=== PATIENT | male | born 1945 | race Hispanic/Latino ===

== ENCOUNTER 2017-07-24 15:29 | Inpatient (IN) | payer OTHER ==
[~2017-07-24] VITALS: Ht 162.6 cm; Wt 91.5 kg
[~2017-07-24 15:29] MED LIST: ADVIL200 MG PO; ATENOLOL100 MG PO; AUGMENTIN875 MG PO; BACTRIM,SEPT1 TABLET PO; CENTANY1 EACH TP; CLEOCIN300 MG PO; Cipro PO; ELIQUIS5 MG PO; FERROUS SULFAT325 MG PO; GLIMEPIRIDE4 MG PO; GLIPIZIDE10 MG PO; GLUCOPHAGE1000 MG PO; GLUCOTROL10 MG PO; LASIX20 MG PO; LISINOPRIL40 MG PO; LYRICA300 MG PO; METFORMIN HCL1000 MG PO; OXYCONTIN10 MG PO; Percocet 5/325,Endoc PO; TAMSULOSIN HCL0.4 MG PO; TENORMIN100 MG PO; [UNRECOGNIZED DRUG - OTHER] TP; [UNRECOGNIZED DRUG - REMARK]
[2017-07-24 16:47] LABS: HEMATOCRIT 31.2 % (38.0-50.0); MCH 28.9 PG (29.0-34.0); MCHC 33.7 G/DL (30.0-36.0); MEAN PLAT.VOLUME 9.9 uM^3 (9.0-12.4); PLATELET COUNT 74 K/uL (156-360); RBC DIS.WIDTH-SD 47.5 % (39-53); RED BLOOD COUNT 3.63 M/uL (4.00-5.50); WHITE BLOOD COUNT 7.6 K/uL (4.1-10.2)
[2017-07-24 16:59] LABS: CHLORIDE 104 mEq/L (99-109); SODIUM 128 mEq/L (136-147)
[2017-07-24 17:01] LABS: GLUCOSE 190 mg/dL (70-99)
[2017-07-24 17:02] LABS: ANION GAP 7 MEQ/L (2-14)
[2017-07-24 17:04] LABS: GFR ESTIMATE (CALCULATED) 30 mL/min/
[2017-07-24 17:05] LABS: UREA NITROGEN (BUN) 36 mg/dL (9-23)
[2017-07-24 17:13] LABS: TROP-I INTERPRETATION NEGATIVE; TROPONIN-I < 0.01 ng/mL (0.0-0.30)
[2017-07-24 17:18] LABS: POTASSIUM 6.9 mEq/L (3.7-5.4)
[2017-07-24] MEDS ORDERED: GLUCOPHAGE500 MG PO (19:01)
[2017-07-24] MEDS ORDERED: NORVASC5 MG PO (19:01)
[2017-07-24] MEDS ORDERED: AMARYL2 MG PO (19:01)
[2017-07-24] MEDS ORDERED: LEVEMIR FL100 UNIT/1 SC (19:02)
[2017-07-24] MEDS ORDERED: TENORMIN50 MG PO (19:02)
[2017-07-24] MEDS ORDERED: ZESTRIL40 MG PO (19:02)
[2017-07-24] MEDS ORDERED: CLOTRIMAZOLE-BE15 GM TP (19:03)
[2017-07-24] MEDS ORDERED: ADVIL200 MG PO (19:03)
[2017-07-24 20:54] VITALS: BP 168/72
[2017-07-24 21:09] LABS: Estimated Average Glucose 151 mg/dL (70-123)
[2017-07-24 22:29] LABS: HEMOGLOBIN A1c (GLYCOHEMOGLOB) 6.9 % HGB (Below 5.7)
[2017-07-24 23:43] VITALS: BP 144/62
[2017-07-25 03:50] VITALS: BP 125/58
[2017-07-25 06:08] LABS: MCH 28.3 PG (29.0-34.0); MCHC 32.4 G/DL (30.0-36.0); MCV 87.3 FL (86-99); PLATELET COUNT 61 K/uL (156-360); RBC DIS.WIDTH-CV 15.1 % (11.8-14.6); RBC DIS.WIDTH-SD 47.9 % (39-53); RED BLOOD COUNT 3.32 M/uL (4.00-5.50); WHITE BLOOD COUNT 5.8 K/uL (4.1-10.2)
[2017-07-25 06:58] LABS: ANION GAP 12 MEQ/L (2-14); CHLORIDE 103 MEQ/L (99-109); GFR ESTIMATE (CALCULATED) 30 mL/min/; GLUCOSE 230 mg/dL (70-99); SAMPLE HEMOLYSIS CHECK 0; SAMPLE ICTERIC CHECK 0; SAMPLE LIPEMIA CHECK 0; SODIUM 131 MEQ/L (136-147); UREA NITROGEN (BUN) 42 mg/dL (9-23)
[2017-07-25 07:02] LABS: POTASSIUM 6.4 MEQ/L (3.7-5.4)
[2017-07-25 07:37] VITALS: BP 138/65
[2017-07-25 08:22] LABS: POINT-OF-CARE METER ID UU14188625
[2017-07-25 11:06] LABS: IRON 68 MCG/DL (35-150)
[2017-07-25 13:28] LABS: ANION GAP 10 MEQ/L (2-14); CHLORIDE 103 MEQ/L (99-109); POTASSIUM 5.2 MEQ/L (3.7-5.4); SAMPLE HEMOLYSIS CHECK 0; SAMPLE ICTERIC CHECK 0; SAMPLE LIPEMIA CHECK 0; SODIUM 131 MEQ/L (136-147)
[2017-07-25 13:34] LABS: GFR ESTIMATE (CALCULATED) 33 mL/min/; GLUCOSE 299 mg/dL (70-99); UREA NITROGEN (BUN) 45 mg/dL (9-23)
[2017-07-25 14:37] LABS: POINT-OF-CARE METER ID UU14188625
[2017-07-25 16:44] VITALS: BP 150/67
[2017-07-25 19:49] VITALS: BP 146/69
[2017-07-25 23:32] VITALS: BP 155/65
[2017-07-26 03:42] VITALS: BP 146/62
[2017-07-26 06:46] LABS: HEMATOCRIT 26.4 % (38.0-50.0); MCH 28.7 PG (29.0-34.0); MCV 87.1 FL (86-99); PLATELET COUNT 52 K/uL (156-360); RBC DIS.WIDTH-SD 47.8 % (39-53); RED BLOOD COUNT 3.03 M/uL (4.00-5.50)
[2017-07-26 07:25] LABS: ANION GAP 13 MEQ/L (2-14); CHLORIDE 105 MEQ/L (99-109); GFR ESTIMATE (CALCULATED) 33 mL/min/; GLUCOSE 270 mg/dL (70-99); POTASSIUM 4.8 MEQ/L (3.7-5.4); SAMPLE HEMOLYSIS CHECK 0; SAMPLE ICTERIC CHECK 0; SAMPLE LIPEMIA CHECK 0; SODIUM 133 MEQ/L (136-147); UREA NITROGEN (BUN) 62 mg/dL (9-23)
[2017-07-26 08:22] VITALS: BP 132/61
[2017-07-26 08:39] LABS: POINT-OF-CARE METER ID UU14188625
[2017-07-26 12:44] LABS: POINT-OF-CARE METER ID UU14188625
[2017-07-26 12:50] VITALS: BP 138/63
[2017-07-26 16:18] VITALS: BP 136/61
[2017-07-26 20:12] VITALS: BP 168/68
[2017-07-26 23:28] VITALS: BP 135/60
[2017-07-27 03:32] VITALS: BP 158/70
[2017-07-27 06:12] LABS: HEMATOCRIT 27.4 % (38.0-50.0); MCH 28.8 PG (29.0-34.0); MCHC 32.8 G/DL (30.0-36.0); MCV 87.5 FL (86-99); MEAN PLAT.VOLUME 11.4 uM^3 (9.0-12.4); PLATELET COUNT 52 K/uL (156-360); RBC DIS.WIDTH-CV 15.4 % (11.8-14.6); RBC DIS.WIDTH-SD 48.9 % (39-53); RED BLOOD COUNT 3.13 M/uL (4.00-5.50); WHITE BLOOD COUNT 6.7 K/uL (4.1-10.2)
[2017-07-27 06:41] LABS: ANION GAP 9 MEQ/L (2-14); CHLORIDE 104 MEQ/L (99-109); GFR ESTIMATE (CALCULATED) 35 mL/min/; GLUCOSE 295 mg/dL (70-99); POTASSIUM 4.6 MEQ/L (3.7-5.4); SAMPLE HEMOLYSIS CHECK 0; SAMPLE ICTERIC CHECK 0; SAMPLE LIPEMIA CHECK 0; SODIUM 133 MEQ/L (136-147); UREA NITROGEN (BUN) 68 mg/dL (9-23)
[2017-07-27 08:20] VITALS: BP 126/56
[2017-07-27 08:42] LABS: POINT-OF-CARE METER ID UU14188625
[2017-07-27 13:09] LABS: POINT-OF-CARE METER ID UU14174225
[2017-07-27 15:59] VITALS: BP 150/64
[2017-07-27 18:36] LABS: POINT-OF-CARE METER ID UU14188625
[2017-07-27 19:49] VITALS: BP 175/75
[2017-07-28] VITALS: BP 126/58
[2017-07-28 03:52] VITALS: BP 155/67
[2017-07-28 07:02] LABS: ANION GAP 7 MEQ/L (2-14); CHLORIDE 107 MEQ/L (99-109); GFR ESTIMATE (CALCULATED) 40 mL/min/; GLUCOSE 229 mg/dL (70-99); POTASSIUM 4.4 MEQ/L (3.7-5.4); SAMPLE HEMOLYSIS CHECK 0; SAMPLE ICTERIC CHECK 0; SAMPLE LIPEMIA CHECK 0; SODIUM 138 MEQ/L (136-147); UREA NITROGEN (BUN) 66 mg/dL (9-23); URIC ACID 10.9 mg/dL (3.1-9.2)
[2017-07-28 07:53] LABS: POINT-OF-CARE METER ID UU14174225
[2017-07-28 08:34] VITALS: BP 139/93
[2017-07-28 11:28] VITALS: BP 145/63
[2017-07-28 12:19] LABS: POINT-OF-CARE METER ID UU14174225
[2017-07-28 17:27] LABS: POINT-OF-CARE METER ID UU14174225
[2017-07-28 17:46] VITALS: BP 139/78
[2017-07-28 21:02] LABS: POINT-OF-CARE METER ID UU14174225
[2017-07-29 00:14] VITALS: BP 117/59
[2017-07-29 06:35] LABS: EOSINOPHIL (%) 0 % (0-5); INSTRUMENT ABS NEUTROPHIL CT 3.1 K/uL; LYMPHOCYTE COUNT 0.6 K/uL (1.0-2.8); MCH 29.6 PG (29.0-34.0); MCHC 34.1 G/DL (30.0-36.0); MCV 86.8 FL (86-99); MONOCYTE (%) 9.5 % (3-12); MONOCYTE COUNT 0.4 K/uL (0-0.8); NEUTROPHIL (%) 74.9 % (45-76); NEUTROPHIL COUNT 3.1 K/uL (1.8-6.4); RBC DIS.WIDTH-CV 15.4 % (11.8-14.6); RED BLOOD COUNT 3.34 M/uL (4.00-5.50); WHITE BLOOD COUNT 4.1 K/uL (4.1-10.2)
[2017-07-29 07:01] LABS: ANION GAP 8 MEQ/L (2-14); CHLORIDE 109 MEQ/L (99-109); GFR ESTIMATE (CALCULATED) 49 mL/min/; GLUCOSE 144 mg/dL (70-99); MEAN PLAT.VOLUME 10.9 uM^3 (9.0-12.4); PLAT.SUFFICIENCY DECREASED; PLATELET COUNT 44 K/uL (156-360); SAMPLE HEMOLYSIS CHECK 0; SAMPLE ICTERIC CHECK 0; SAMPLE LIPEMIA CHECK 0; SODIUM 144 MEQ/L (136-147); UREA NITROGEN (BUN) 53 mg/dL (9-23)
[2017-07-29 07:02] LABS: ANION GAP 8 MEQ/L (2-14); CHLORIDE 109 MEQ/L (99-109); GFR ESTIMATE (CALCULATED) 45 mL/min/; GLUCOSE 145 mg/dL (70-99); SAMPLE HEMOLYSIS CHECK 0; SAMPLE ICTERIC CHECK 0; SAMPLE LIPEMIA CHECK 0; SODIUM 144 MEQ/L (136-147); UREA NITROGEN (BUN) 54 mg/dL (9-23)
[2017-07-29 07:48] VITALS: BP 147/70
[2017-07-29 12:03] LABS: POINT-OF-CARE METER ID UU14188625
[2017-07-29 15:13] VITALS: BP 123/69
[2017-07-29 20:45] VITALS: BP 127/70
[2017-07-29 23:34] VITALS: BP 116/58
[2017-07-30 06:04] LABS: HEMATOCRIT 31.6 % (38.0-50.0); MCH 29.1 PG (29.0-34.0); MCHC 33.9 G/DL (30.0-36.0); MCV 85.9 FL (86-99); RBC DIS.WIDTH-CV 15.3 % (11.8-14.6); RED BLOOD COUNT 3.68 M/uL (4.00-5.50)
[2017-07-30 06:29] LABS: ANION GAP 8 MEQ/L (2-14); CHLORIDE 105 MEQ/L (99-109); GFR ESTIMATE (CALCULATED) 42 mL/min/; POTASSIUM 3.7 MEQ/L (3.7-5.4); SAMPLE HEMOLYSIS CHECK 0; SAMPLE ICTERIC CHECK 0; SAMPLE LIPEMIA CHECK 0; SODIUM 142 MEQ/L (136-147); UREA NITROGEN (BUN) 56 mg/dL (9-23)
[2017-07-30 06:30] LABS: GLUCOSE 86 mg/dL (70-99)
[2017-07-30 07:10] LABS: HEMATOLOGY COMMENT 1 SMEAR COMPATIBLE; IMM.PLATELET FRACTION 4.1 (1-7); MEAN PLAT.VOLUME 10.6 uM^3 (9.0-12.4); PLATELET COUNT 48 K/uL (156-360)
[2017-07-30 08:04] VITALS: BP 121/63
[2017-07-30 08:22] LABS: POINT-OF-CARE METER ID UU13113717
[2017-07-30 09:34] LABS: POINT-OF-CARE METER ID UU13113717
[2017-07-30 11:51] LABS: POINT-OF-CARE METER ID UU13113717
[2017-07-30 15:45] VITALS: BP 127/80
[2017-07-30 18:36] LABS: MAGNESIUM 2.2 mg/dl (1.3-2.7)
[2017-07-30 18:59] LABS: POTASSIUM 4.6 MEQ/L (3.7-5.4)
[2017-07-30 19:42] VITALS: BP 131/60
[2017-07-30 21:20] LABS: POINT-OF-CARE METER ID UU14174225
[2017-07-31 00:41] VITALS: BP 104/50
[2017-07-31 04:02] VITALS: BP 106/54
[2017-07-31 06:53] LABS: ANION GAP 11 MEQ/L (2-14); CHLORIDE 105 MEQ/L (99-109); GFR ESTIMATE (CALCULATED) 37 mL/min/; GLUCOSE 89 mg/dL (70-99); POTASSIUM 3.8 MEQ/L (3.7-5.4); SAMPLE HEMOLYSIS CHECK 0; SAMPLE ICTERIC CHECK 0; SAMPLE LIPEMIA CHECK 0; SODIUM 144 MEQ/L (136-147); UREA NITROGEN (BUN) 61 mg/dL (9-23)
[2017-07-31 07:52] LABS: POINT-OF-CARE METER ID UU13113717
[2017-07-31 08:38] VITALS: BP 122/60
[2017-07-31 11:55] LABS: POINT-OF-CARE METER ID UU13113717
[2017-07-31 12:35] VITALS: BP 134/63
[2017-07-31 16:24] VITALS: BP 141/62
[2017-07-31 16:51] LABS: POINT-OF-CARE METER ID UU13113717
[2017-07-31 20:05] VITALS: BP 124/58
[2017-07-31 21:09] LABS: POINT-OF-CARE METER ID UU13113717
[2017-08-01 00:58] VITALS: BP 131/60
[2017-08-01 04:58] VITALS: BP 101/54
[2017-08-01 07:00] LABS: HEMATOCRIT 32.4 % (38.0-50.0); MCH 29.9 PG (29.0-34.0); RBC DIS.WIDTH-CV 15.6 % (11.8-14.6); RED BLOOD COUNT 3.68 M/uL (4.00-5.50); WHITE BLOOD COUNT 5.5 K/uL (4.1-10.2)
[2017-08-01 07:22] LABS: ANION GAP 10 MEQ/L (2-14); CHLORIDE 105 MEQ/L (99-109); GFR ESTIMATE (CALCULATED) 35 mL/min/; GLUCOSE 101 mg/dL (70-99); SAMPLE HEMOLYSIS CHECK 0; SAMPLE ICTERIC CHECK 0; SAMPLE LIPEMIA CHECK 0; SODIUM 145 MEQ/L (136-147); UREA NITROGEN (BUN) 64 mg/dL (9-23)
[2017-08-01 07:24] VITALS: BP 116/57
[2017-08-01 08:41] LABS: IMM.PLATELET FRACTION 4.9 (1-7); MEAN PLAT.VOLUME 11.7 uM^3 (9.0-12.4); PLAT.SUFFICIENCY DECREASED; PLATELET COUNT 45 K/uL (156-360)
[2017-08-01 11:02] VITALS: BP 145/65
[2017-08-01] MEDS ORDERED: LASIX40 MG PO (13:52)
[2017-08-01] MEDS ORDERED: DILTIAZEM 24HR120 MG PO (13:52)
[2017-08-01] MEDS ORDERED: K-DUR20 MEQ PO (13:52)
[2017-08-01] MEDS ORDERED: SPIRIVA RESPIMAT4 GM IH (13:52)
[2017-08-01] MEDS ORDERED: ADVAIR HFA120 INHALA IH (13:56)
[2017-08-01] MEDS ORDERED: SENNA PLUS TAB1 EACH PO (13:56)
[2017-08-01] MEDS ORDERED: METOLAZONE5 MG PO (13:56)
[2017-08-01] MEDS ORDERED: FUROSEMIDE80 MG PO (15:10)
[2017-08-01 15:39] VITALS: BP 143/63
[2017-08-01 15:41] LABS: POINT-OF-CARE METER ID UU13113717
[2017-08-17] MEDS ORDERED: ATARAX,VISTARIL25 MG PO (21:18)
[2017-08-21] MEDS ORDERED: Thiamine,Vitamin B1 PO (13:09)
[2017-08-21] MEDS ORDERED: LACTULOSE10 GM/151 PO (13:09)
[2017-08-21] MEDS ORDERED: FOLIC ACID1 MG PO (13:09)
== END 2017-08-01 17:03 | disposition home or self-care (01) | DRG 682 ==
LOC: EME 15:29 → EDOF 18:06 → 5SOUTH 18:06 → ENRESERV 18:09 → 5SOUTH 20:34
PROVIDERS: Hospitalist; Internal Medicine; Internal Medicine Cardiovascular Disease; Internal Medicine Nephrology; Physician Assistant Medical; Student in an Organized Health Care Education/Training Program
DX: N17.9 Acute kidney failure, unspecified (principal); J44.1 Chronic obstructive pulmonary disease with (acute) exacerbation; J96.01 Acute respiratory failure with hypoxia; I50.9 Heart failure, unspecified; E87.5 Hyperkalemia; R00.1 Bradycardia, unspecified; J20.9 Acute bronchitis, unspecified; J44.0 Chronic obstructive pulmonary disease with (acute) lower respiratory infection; E11.22 Type 2 diabetes mellitus with diabetic chronic kidney disease; E86.0 Dehydration; D69.6 Thrombocytopenia, unspecified; E66.9 Obesity, unspecified; G47.33 Obstructive sleep apnea (adult) (pediatric); N18.3 Chronic kidney disease, stage 3 (moderate); I13.0 Hypertensive heart and chronic kidney disease with heart failure and stage 1 through stage 4 chronic kidney disease, or unspecified chronic kidney disease; Z68.38 Body mass index [BMI] 38.0-38.9, adult; I27.2 Other secondary pulmonary hypertension; K74.60 Unspecified cirrhosis of liver; I08.1 Rheumatic disorders of both mitral and tricuspid valves; N13.8 Other obstructive and reflux uropathy; E66.01 Morbid (severe) obesity due to excess calories; I48.91 Unspecified atrial fibrillation; I42.9 Cardiomyopathy, unspecified; I27.81 Cor pulmonale (chronic); I48.92 Unspecified atrial flutter; M79.7 Fibromyalgia; E87.2 Acidosis; T39.395A Adverse effect of other nonsteroidal anti-inflammatory drugs [NSAID], initial encounter; T50.2X5A Adverse effect of carbonic-anhydrase inhibitors, benzothiadiazides and other diuretics, initial encounter; E11.21 Type 2 diabetes mellitus with diabetic nephropathy; N28.89 Other specified disorders of kidney and ureter; I83.028 Varicose veins of left lower extremity with ulcer other part of lower leg; L97.821 Non-pressure chronic ulcer of other part of left lower leg limited to breakdown of skin; E11.51 Type 2 diabetes mellitus with diabetic peripheral angiopathy without gangrene; D64.9 Anemia, unspecified; E11.65 Type 2 diabetes mellitus with hyperglycemia; E78.5 Hyperlipidemia, unspecified; Z79.84 Long term (current) use of oral hypoglycemic drugs; Z79.4 Long term (current) use of insulin
CPT/HCPCS: 71010; 71020; 74176; 76770; 80048; 80048 91; 80069; 81003; 82948; 83036; 83540; 83735; 83880; 83930; 83935; 84132 91; 84300; 84466; 84484; 84550; 84999; 85025; 85027; 93005; 93306; 94010; 94640; 94640 76; 94799; 99202; 99281; 99285; J0456; J0610; J0696; J1644; J1815; J1940; J2920; J2930; J3475; J7030; J7040; J7050; J7512; S0028

== ENCOUNTER 2018-02-13 11:38 | Emergency (ER) | payer OTHER ==
[~2018-02-13] VITALS: Ht 160 cm; Wt 78.0 kg
[~2018-02-13 11:38] MED LIST changes: +ADVAIR HFA120 INHALA IH; +ALDACTONE25 MG PO; +AMARYL2 MG PO; +ATARAX,VISTARIL25 MG PO; +CLOTRIMAZOLE-BE15 GM TP; +CLOTRIMAZOLE15 GM TP; +CONSTULOSE10 GM/15 M PO; +DILTIAZEM 24HR120 M2 PO; +DILTIAZEM 24HR120 MG PO; +ERGOCALCIF50000 UNIT PO; +FOLIC ACID1 MG PO; +FUROSEMIDE80 MG PO; +GLUCOPHAGE500 MG PO; +K-DUR20 MEQ PO; +LACTULOSE10 GM/151 PO; +LASIX40 MG PO; +LASIX80 MG PO; +LEVEMIR FL100 UNIT/1 SC; +LYRICA100 MG PO; +METOLAZONE5 MG PO; +NORVASC5 MG PO; +SENNA PLUS TAB1 EACH PO; +SENNA8.6 MG PO; +SPIRIVA RESPIMAT4 GM IH; +TENORMIN50 MG PO; +Thiamine,Vitamin B1 PO; +VITAMIN B-1100 MG PO; +ZESTRIL40 MG PO
[2018-02-13 12:34] LABS: HEMATOCRIT 41.9 % (38.0-50.0); HEMOGLOBIN 14.4 G/DL (12.5-16.6); MCH 28.6 PG (29.0-34.0); MCHC 34.4 G/DL (30.0-36.0); MCV 83.3 FL (86-99); PLATELET COUNT 80 K/uL (156-360); RBC DIS.WIDTH-CV 14.4 % (11.8-14.6); RBC DIS.WIDTH-SD 43.2 % (39-53); RED BLOOD COUNT 5.03 M/uL (4.00-5.50); WHITE BLOOD COUNT 6.5 K/uL (4.1-10.2)
[2018-02-13 12:42] LABS: CHLORIDE 104 mEq/L (99-109); POTASSIUM 4.4 mEq/L (3.7-5.4); SODIUM 138 mEq/L (136-147)
[2018-02-13 12:44] LABS: GLUCOSE 325 mg/dL (70-99)
[2018-02-13 12:48] LABS: CREATININE 2.3 mg/dL (0.6-1.3); GFR ESTIMATE (CALCULATED) 30 mL/min/ (58.99-99999)
[2018-02-13 12:49] LABS: UREA NITROGEN (BUN) 44 mg/dL (9-23)
[2018-02-13 17:09] LABS: ALBUMIN 3.7 g/dL (3.2-4.8)
[2018-02-13 17:14] LABS: TOTAL BILIRUBIN 2.1 mg/dL (0.0-1.0)
[2018-02-13 17:15] LABS: ALKALINE PHOSPHATASE 305 IU/L (3-129)
[2018-02-13 17:17] LABS: AST (GOT) 61 IU/L (2-34)
[2018-02-13 17:18] LABS: ALT (GPT) 42 IU/L (3-49)
[2018-02-13 17:19] LABS: LIPASE 255 U/L (1.0-51.0)
[2018-02-13 18:00] LABS: INTER. NORMALIZED RATIO 1.1
[2018-02-13 18:02] LABS: SALICYLATE < 5.0 MG/DL (15-30)
[2018-02-13 18:03] LABS: ACETAMINOPHEN (TYLENOL) < 10 mcg/mL (10-30)
[2018-02-13 18:03] LABS: PTT 31.6 SEC (25-37)
[2018-02-13 20:30] LABS: APPEARANCE CLEAR ((CLEAR)); BILIRUBIN NEGATIVE; BLOOD NEGATIVE; COLOR YELLOW ((YELLOW)); GLUCOSE (STRIP) 50; KETONES NEGATIVE; LEUKOCYTES NEGATIVE; NITRITE NEGATIVE; PROTEIN (STRIP) 100; SPECIFIC GRAVITY 1.019 (1.000-1.030); UROBILINOGEN 0.2 MG/DL (0.2-1.0)
[2018-02-13 20:35] LABS: BACTERIA NONE SEEN /HPF; EPITHELIAL CELLS NONE SEEN /HPF; MUCUS NONE SEEN /LPF; RED BLOOD CELLS 0-5 /HPF (0-5); UCUL ADDED? NO; WHITE BLOOD CELLS 0-5 /HPF (0-5)
[2018-02-13 20:42] LABS: AMPHETAMINE NEGATIVE (500 ng/mL); BARBITURATES NEGATIVE (200 ng/mL); BENZODIAZEPINES NEGATIVE (150 ng/mL); BUPRENORPHINE NEGATIVE (10 ng/mL); COCAINE NEGATIVE (150 ng/mL); METHADONE NEGATIVE (200 ng/mL); METHAMPHETAMINE NEGATIVE (500 ng/mL); OPIATES (MORPHINE) NEGATIVE (100 ng/mL); OXYCODONE NEGATIVE (100 ng/mL); PHENCYCLIDINE NEGATIVE (25 ng/mL); PROPOXYPHENE NEGATIVE (300 ng/mL); THC CANNABINOIDS NEGATIVE (50 ng/mL); TRICYCLIC ANTIDEPRESSANTS NEGATIVE (300 ng/mL)
[2018-02-13 22:36] VITALS: BP 142/64
== END 2018-02-13 22:38 | disposition home or self-care (01) ==
LOC: EME 11:38
PROVIDERS: Physician Assistant
DX: E86.0 Dehydration (principal); K74.60 Unspecified cirrhosis of liver; N28.89 Other specified disorders of kidney and ureter; E11.9 Type 2 diabetes mellitus without complications; J44.9 Chronic obstructive pulmonary disease, unspecified; N18.9 Chronic kidney disease, unspecified; M79.7 Fibromyalgia; L40.9 Psoriasis, unspecified; I73.9 Peripheral vascular disease, unspecified; Z87.891 Personal history of nicotine dependence; Z79.4 Long term (current) use of insulin
CPT/HCPCS: 74176; 76705; 80048; 80076; 81003; 82140; 83690; 85027; 85610; 85730; 93005; 99281; 99285; G0480; J7030